=== PATIENT | female | born 1990 | race Hispanic/Latino ===

== ENCOUNTER 2016-05-12 07:09 | Emergency (ER) | payer OTHER ==
[~2016-05-12] VITALS: Ht 160 cm; Wt 62.0 kg
[2016-05-12 08:46] LABS: ADD MIUA? YES; BILIRUBIN NEGATIVE; BLOOD NEGATIVE; COLOR YELLOW ((YELLOW)); GLUCOSE (STRIP) NEGATIVE; KETONES NEGATIVE; LEUKOCYTES NEGATIVE; NITRITE NEGATIVE; PH, URINE 6.5 (5-8); PROTEIN (STRIP) NEGATIVE; SPECIFIC GRAVITY 1.015 (1.000-1.030); UROBILINOGEN 0.2 MG/DL (0.2-1.0)
[2016-05-12 09:03] LABS: HEMATOCRIT 32.6 % (36.0-46.0); MCH 30.5 PG (29.0-34.0); MCV 89.6 FL (83-99); PLATELET COUNT 304 K/uL (156-360); RBC DIS.WIDTH-CV 12.7 % (11.8-14.6); RBC DIS.WIDTH-SD 40.5 % (39-53); RED BLOOD COUNT 3.64 M/uL (3.80-5.20); WHITE BLOOD COUNT 12.8 K/uL (4.1-10.2)
[2016-05-12 09:13] LABS: CHLORIDE 107 mEq/L (99-109); POTASSIUM 3.7 mEq/L (3.7-5.4); SODIUM 138 mEq/L (136-147)
[2016-05-12 09:15] LABS: GLUCOSE 88 mg/dL (70-99)
[2016-05-12 09:17] LABS: ANION GAP 10 MEQ/L (2-14); TOTAL BILIRUBIN 0.5 mg/dL (0.0-1.0)
[2016-05-12 09:19] LABS: ALKALINE PHOSPHATASE 70 IU/L (3-129); GFR ESTIMATE (CALCULATED) > 59 mL/min/
[2016-05-12 09:20] LABS: UREA NITROGEN (BUN) 9 mg/dL (9-23)
[2016-05-12 09:23] LABS: BACTERIA 3+; CASTS NONE SEEN /LPF; CRYSTALS NONE SEEN; EPITHELIAL CELLS 1+; MUCUS NONE SEEN; RED BLOOD CELLS RARE /HPF (0-5); UCUL ADDED? NO; WHITE BLOOD CELLS RARE /HPF (0-5)
[2016-05-12] MEDS ORDERED: ZOFRAN ODT4 MG PO (10:05)
[2016-05-12] MEDS ORDERED: PRENATAL TABLE1 EAC3 PO (10:43)
[2016-05-12 10:44] VITALS: BP 113/76
== END 2016-05-12 10:48 | disposition home or self-care (01) ==
LOC: EME 07:09
PROVIDERS: Nurse Practitioner Family
DX: R51 Headache (principal); Z33.1 Pregnant state, incidental; Z3A.25 25 weeks gestation of pregnancy
CPT/HCPCS: 80053; 81003; 85027; 99281; 99285; J7030

== ENCOUNTER 2016-08-24 10:29 | Outpatient (CLI) | payer OTHER ==
[~2016-08-24 10:29] MED LIST: PRENATAL TABLE1 EAC3 PO; ZOFRAN ODT4 MG PO
[2016-08-24 10:49] VITALS: BP 128/89
[2016-08-24 11:22] VITALS: BP 127/82
[2016-08-24 11:30] LABS: ADD MIUA? YES; BILIRUBIN NEGATIVE; BLOOD NEGATIVE; COLOR YELLOW ((YELLOW)); GLUCOSE (STRIP) NEGATIVE; KETONES NEGATIVE; LEUKOCYTES TRACE; NITRITE NEGATIVE; PROTEIN (STRIP) 30; SPECIFIC GRAVITY 1.009 (1.000-1.030); UROBILINOGEN 0.2 MG/DL (0.2-1.0)
[2016-08-24 11:33] LABS: BACTERIA RARE /HPF; EPITHELIAL CELLS RARE /HPF; MUCUS TRACE /LPF; RED BLOOD CELLS 0-5 /HPF (0-5); UCUL ADDED? NO; WHITE BLOOD CELLS 0-5 /HPF (0-5)
[2016-08-24 11:59] LABS: UR CREATININE CONCENTRATION 61.5 MG/DL
[2016-08-24 12:04] VITALS: BP 123/86
[2016-08-24 12:08] LABS: EOSINOPHIL (%) 1.2 % (0-5); EOSINOPHIL COUNT 0.1 K/uL (0-0.3); HEMATOCRIT 35.5 % (36.0-46.0); IMMATURE GRANULOCYTE (%) 1.3 % (0.0-0.7); IMMATURE GRANULOCYTE COUNT 0.2 K/uL; INSTRUMENT ABS NEUTROPHIL CT 7.7 K/uL; MCH 29.5 PG (29.0-34.0); MCV 89.6 FL (83-99); MEAN PLAT.VOLUME 12.9 uM^3 (9.5-12.4); MONOCYTE (%) 6.3 % (3-12); MONOCYTE COUNT 0.7 K/uL (0-0.8); NEUTROPHIL (%) 65.6 % (45-76); NEUTROPHIL COUNT 7.7 K/uL (1.8-6.4); PLATELET COUNT 261 K/uL (156-360); RBC DIS.WIDTH-CV 13.9 % (11.8-14.6); RBC DIS.WIDTH-SD 46.1 % (39-53); RED BLOOD COUNT 3.96 M/uL (3.80-5.20); WHITE BLOOD COUNT 11.7 K/uL (4.1-10.2)
[2016-08-24 12:33] VITALS: BP 128/88
[2016-08-24 12:33] LABS: ALKALINE PHOSPHATASE 173 IU/L (3-129); ANION GAP 8 MEQ/L (2-14); CHLORIDE 106 MEQ/L (99-109); GFR ESTIMATE (CALCULATED) > 59 mL/min/; GLUCOSE 78 mg/dL (70-99); POTASSIUM 4.3 MEQ/L (3.7-5.4); SAMPLE HEMOLYSIS CHECK 0; SAMPLE ICTERIC CHECK 0; SAMPLE LIPEMIA CHECK 0; SODIUM 135 MEQ/L (136-147); TOTAL BILIRUBIN 0.5 MG/DL (0.0-1.0); UREA NITROGEN (BUN) 16 mg/dL (9-23)
[2016-08-24 13:28] VITALS: BP 134/71
== END 2016-08-24 14:45 | disposition home or self-care (01) ==
LOC: LDRP-OP 10:29 → 2WEST 10:30 → LDRP-OP 09-24 15:09
PROVIDERS: Obstetrics & Gynecology
DX: O26.893 Other specified pregnancy related conditions, third trimester (principal); R03.0 Elevated blood-pressure reading, without diagnosis of hypertension; Z3A.40 40 weeks gestation of pregnancy
CPT/HCPCS: 59025; 80053; 81003; 82570; 84156; 85025; G0378

== ENCOUNTER 2016-08-26 15:21 | Inpatient (IN) | payer OTHER ==
[~2016-08-26] VITALS: Ht 162.6 cm; Wt 72.0 kg
[2016-08-26] VITALS (11 sets, daily range): BP systolic 120–138; BP diastolic 75–96
[2016-08-26 15:58] LABS: EOSINOPHIL (%) 0.9 % (0-5); EOSINOPHIL COUNT 0.1 K/uL (0-0.3); HEMATOCRIT 35.6 % (36.0-46.0); IMMATURE GRANULOCYTE (%) 1.1 % (0.0-0.7); IMMATURE GRANULOCYTE COUNT 0.1 K/uL; INSTRUMENT ABS NEUTROPHIL CT 8.5 K/uL; LYMPHOCYTE COUNT 3.2 K/uL (1.0-2.8); MCH 30.6 PG (29.0-34.0); MCV 89.9 FL (83-99); MEAN PLAT.VOLUME 12.5 uM^3 (9.5-12.4); MONOCYTE (%) 7.2 % (3-12); MONOCYTE COUNT 0.9 K/uL (0-0.8); NEUTROPHIL COUNT 8.5 K/uL (1.8-6.4); PLATELET COUNT 282 K/uL (156-360); RBC DIS.WIDTH-CV 14.3 % (11.8-14.6); RBC DIS.WIDTH-SD 46.6 % (39-53); RED BLOOD COUNT 3.96 M/uL (3.80-5.20); WHITE BLOOD COUNT 12.9 K/uL (4.1-10.2)
[2016-08-26 16:13] LABS: ANION GAP 9 MEQ/L (2-14); CHLORIDE 106 MEQ/L (99-109); POTASSIUM 4.3 MEQ/L (3.7-5.4); SAMPLE HEMOLYSIS CHECK 0; SAMPLE ICTERIC CHECK 0; SAMPLE LIPEMIA CHECK 0; SODIUM 137 MEQ/L (136-147); TOTAL BILIRUBIN 0.5 MG/DL (0.0-1.0)
[2016-08-26 16:19] LABS: ALKALINE PHOSPHATASE 204 IU/L (3-129); GFR ESTIMATE (CALCULATED) > 59 mL/min/; GLUCOSE 88 mg/dL (70-99); UREA NITROGEN (BUN) 16 mg/dL (9-23)
[2016-08-26 18:14] LABS: UR CREATININE CONCENTRATION 97.1 MG/DL
[2016-08-27] VITALS (30 sets, daily range): BP systolic 113–148; BP diastolic 57–87
[2016-08-27] MEDS ORDERED: IBUPROFEN800 MG PO (18:47)
[2016-08-28 03:00] VITALS: BP 107/56
[2016-08-28 07:17] VITALS: BP 126/75
[2016-08-28 08:00] LABS: BASOPHIL COUNT 0.1 K/uL (0-0.1); EOSINOPHIL (%) 0.6 % (0-5); EOSINOPHIL COUNT 0.1 K/uL (0-0.3); HEMATOCRIT 31.8 % (36.0-46.0); IMMATURE GRANULOCYTE (%) 1.3 % (0.0-0.7); IMMATURE GRANULOCYTE COUNT 0.3 K/uL; INSTRUMENT ABS NEUTROPHIL CT 18.2 K/uL; LYMPHOCYTE COUNT 4.8 K/uL (1.0-2.8); MCHC 32.7 G/DL (30.0-36.0); MCV 91.6 FL (83-99); MONOCYTE (%) 7.4 % (3-12); MONOCYTE COUNT 1.9 K/uL (0-0.8); NEUTROPHIL (%) 71.7 % (45-76); NEUTROPHIL COUNT 18.2 K/uL (1.8-6.4); PLATELET COUNT 236 K/uL (156-360); RBC DIS.WIDTH-SD 50.2 % (39-53); RED BLOOD COUNT 3.47 M/uL (3.80-5.20)
[2016-08-28 08:15] LABS: WHITE BLOOD COUNT 25.4 K/uL (4.1-10.2)
[2016-08-28 11:30] VITALS: BP 122/68
[2016-08-28 14:53] VITALS: BP 115/63
[2016-08-28 20:33] VITALS: BP 120/79
[2016-08-28 23:05] VITALS: BP 104/59
[2016-08-29 05:00] VITALS: BP 117/68
[2016-08-29 10:04] VITALS: BP 157/90
[2016-08-29 11:00] VITALS: BP 135/92
== END 2016-08-29 12:53 | disposition home or self-care (01) | DRG 775 ==
LOC: LDRP-OP 15:21 → 2WEST 15:22 → LDRP-OP 09-24 22:47
PROVIDERS: Midwife; Nurse Practitioner
PROC: 3E0P7GC Introduction of Other Therapeutic Substance into Female Reproductive, Via Natural or Artificial Opening (ICD-10-PCS; principal; 2016-08-26)
PROC: 00HU33Z Insertion of Infusion Device into Spinal Canal, Percutaneous Approach (ICD-10-PCS; 2016-08-27)
PROC: 0KQM0ZZ Repair Perineum Muscle, Open Approach (ICD-10-PCS; 2016-08-27)
PROC: 10E0XZZ Delivery of Products of Conception, External Approach (ICD-10-PCS; 2016-08-27)
PROC: 10907ZC Drainage of Amniotic Fluid, Therapeutic from Products of Conception, Via Natural or Artificial Opening (ICD-10-PCS; 2016-08-27)
PROC: 3E0S3CZ (ICD-10-PCS; 2016-08-27)
DX: O70.1 Second degree perineal laceration during delivery (principal); Z3A.40 40 weeks gestation of pregnancy; Z37.0 Single live birth; O77.0 Labor and delivery complicated by meconium in amniotic fluid; O76 Abnormality in fetal heart rate and rhythm complicating labor and delivery; O69.81X0 Labor and delivery complicated by cord around neck, without compression, not applicable or unspecified
CPT/HCPCS: 59025; 80053; 81003; 82570; 84156; 85025; C1755; G0378; J0595; J3010; J7120; Q0169